=== PATIENT | female | born 1995 | race Caucasian/White ===

== ENCOUNTER 2019-02-08 09:59 | Emergency (ER) | payer MEDICAID ==
[~2019-02-08] VITALS: Ht 154.9 cm; Wt 50.8 kg
[2019-02-08 10:19] VITALS: BP_SYST 132
[2019-02-08] MEDS ORDERED: DIPH-TET-PERTUS Vaccine 0.5 ML VIAL (ADACEL) IM ONE (10:45)
[2019-02-08] MEDS ORDERED: LIDOCAINE 1% 10 MG/ML, 20 ML MDV INJ ONE (10:45)
[2019-02-08] MEDS ORDERED: BACITRACIN 1 GM OINT TP ONE (10:45)
[2019-02-08] MEDS ORDERED: PENICILLIN G BENZATHINE 1.2 MMU/2 ML SYR IM ONE (10:45)
[2019-02-08 12:36] VITALS: BP_SYST 132
== END 2019-02-08 12:36 | disposition home or self-care (01) ==
LOC: SED 09:59
DX: S01.511A Laceration without foreign body of lip, initial encounter (principal); W20.8XXA Other cause of strike by thrown, projected or falling object, initial encounter; Y93.89 Activity, other specified; Y92.89 Other specified places as the place of occurrence of the external cause; Y99.8 Other external cause status
CPT/HCPCS: 12013; 90471; 90715; 96372; 99283; J0561; J2001

== ENCOUNTER 2019-02-10 10:18 | Emergency (ER) | payer MEDICAID ==
[~2019-02-10] VITALS: Ht 154.9 cm; Wt 78.0 kg
[2019-02-10 10:18] VITALS: BP_SYST 140
[2019-02-10 11:00] VITALS: BP_SYST 140
== END 2019-02-10 10:55 | disposition home or self-care (01) ==
LOC: SED 10:18
DX: S01.511D Laceration without foreign body of lip, subsequent encounter (principal); R03.0 Elevated blood-pressure reading, without diagnosis of hypertension; W20.8XXD Other cause of strike by thrown, projected or falling object, subsequent encounter
CPT/HCPCS: 99281

== ENCOUNTER 2019-02-16 13:30 | Emergency (ER) | payer MEDICAID ==
[~2019-02-16] VITALS: Ht 154.9 cm; Wt 50.8 kg
[2019-02-16 13:30] VITALS: BP_SYST 138
--- NOTE | 2019-02-16 13:40 | NUR ---
BROUGHT BACK TO BED #5 AND TRIAGED. REPORT GIVEN TO FAHAD
--- NOTE | 2019-02-16 13:45 | NUR ---
Patient to ER bed 05 for evaluation. Side rails up.
--- NOTE | 2019-02-16 13:48 | NUR ---
JOSIE Kaur at bedside examining patient.
[2019-02-16 14:12] VITALS: BP_SYST 131
--- NOTE | 2019-02-16 14:13 | NUR ---
Patient given written and verbal discharge instructions and verbalizes understanding. ER MD discussed with patient the results and treatment provided. Patient in stable condition. ID arm band removed. Rx of NONE given. Patient educated on pain management and to follow up with PMD. Pain Scale 0/10. Opportunity for questions provided and answered. Medication side effect fact sheet provided. [facility] LIST GIVEN TO PT, EXPLAINED TO PT ABOUT NEED FOR PLASTIC SURGEON
== END 2019-02-16 14:13 | disposition home or self-care (01) ==
LOC: SED 13:30
DX: S01.511D Laceration without foreign body of lip, subsequent encounter (principal); W20.8XXD Other cause of strike by thrown, projected or falling object, subsequent encounter
CPT/HCPCS: 99281

== ENCOUNTER 2019-02-19 11:53 | Emergency (ER) | payer MEDICAID ==
[~2019-02-19] VITALS: Ht 154.9 cm; Wt 50.8 kg
[2019-02-19 12:09] VITALS: BP_SYST 121
[2019-02-19 13:22] VITALS: BP_SYST 125
== END 2019-02-19 13:22 | disposition home or self-care (01) ==
LOC: SED 11:53
DX: S01.511D Laceration without foreign body of lip, subsequent encounter (principal); R03.0 Elevated blood-pressure reading, without diagnosis of hypertension; F17.200 Nicotine dependence, unspecified, uncomplicated; Z71.6 Tobacco abuse counseling; W20.8XXD Other cause of strike by thrown, projected or falling object, subsequent encounter
CPT/HCPCS: 99281; 99283

== ENCOUNTER 2023-02-05 17:45 | Emergency (ER) | payer MEDICAID, OTHER ==
[~2023-02-05] VITALS: Ht 152.4 cm; Wt 65.8 kg
[2023-02-05 18:13] VITALS: BP_SYST 128
--- NOTE | 2023-02-05 19:06 | NUR ---
DR SAVAGE OUT TO TRIAGE ROOM TO EVALUATE PT.
[2023-02-05] MEDS ORDERED: BENZ150C4 PO (19:07)
--- NOTE | 2023-02-05 23:40 | NUR ---
Patient given written and verbal discharge instructions and verbalizes understanding. ER MD discussed with patient the results and treatment provided. Patient in stable condition. ID arm band removed. Rx of given. Patient educated on pain management and to follow up with PMD. Pain Scale . Opportunity for questions provided and answered. Medication side effect fact sheet provided.
== END 2023-02-06 01:52 | disposition home or self-care (01) ==
LOC: SED 17:45
DX: B34.9 Viral infection, unspecified (principal); R05.9 Cough, unspecified; R09.81 Nasal congestion; R51.9 Headache, unspecified; Z79.899 Other long term (current) drug therapy; Z20.822 Contact with and (suspected) exposure to COVID-19
CPT/HCPCS: 36415; 99283